=== PATIENT | male | born 1960 | race Caucasian/White ===

== ENCOUNTER → 2019-06-14 14:39 | Outpatient (CLI) | payer MEDICARE ==
[2019-06-14 15:39] LABS: CALC OSMOLALITY 281 mosm/kg (275-300); CALCIUM 8.5 mg/dL (8.5-10.1); CARBON DIOXIDE 28.6 mmol/L (21.0-32.0); CHLORIDE - SERUM 106 mmol/L (98-107); CREATININE - SERUM 0.7 mg/dL (0.6-1.3); POTASSIUM - SERUM 4.6 mmol/L (3.5-5.1); SODIUM 141 mmol/L (136-145); UREA NITROGEN 20 mg/dL (7-18); VANCOMYCIN - TROUGH 19.5 ug/mL (10.0-20.0); eGFR NON AFRICAN AMERICAN > 90 mL/min (90-120)
[2019-06-14 15:48] LABS: GLUCOSE 69 mg/dL (74-106)
== END | disposition home or self-care (01) ==
LOC: D.LABREF 14:39
DX: T81.49XA Infection following a procedure, other surgical site, initial encounter (principal)

== ENCOUNTER → 2019-06-21 14:58 | Outpatient (CLI) | payer MEDICARE ==
[2019-06-21 16:45] LABS: CALC OSMOLALITY 286 mosm/kg (275-300); CALCIUM 8.1 mg/dL (8.5-10.1); CARBON DIOXIDE 26.8 mmol/L (21.0-32.0); CHLORIDE - SERUM 107 mmol/L (98-107); CREATININE - SERUM 0.9 mg/dL (0.6-1.3); GLUCOSE 98 mg/dL (74-106); POTASSIUM - SERUM 4.2 mmol/L (3.5-5.1); SODIUM 142 mmol/L (136-145); UREA NITROGEN 25 mg/dL (7-18); VANCOMYCIN - TROUGH 10.5 ug/mL (10.0-20.0); eGFR NON AFRICAN AMERICAN > 90 mL/min (90-120)
== END | disposition home or self-care (01) ==
LOC: D.LABREF 14:58
PROVIDERS: ATTEND Internal Medicine
DX: T81.40XA Infection following a procedure, unspecified, initial encounter (principal)

== ENCOUNTER → 2019-06-28 12:06 | Outpatient (CLI) | payer MEDICARE ==
[2019-06-28 12:41] LABS: HEMATOCRIT 24.7 % (42.0-54.0); HEMOGLOBIN 7.7 g/dL (13.5-17.5); MCH 27.3 pg (26.0-34.0); MCHC 31.2 g/dL (31.0-37.0); MCV 87.6 fL (80.0-100.0); MEAN PLATELET VOLUME 8.5 fL (7.4-10.4); PLATELET COUNT 483 10x3/uL (130-400); RBC 2.82 10x6/uL (4.20-6.10); RDW 17.6 % (11.5-14.5); WBC 22.3 10x3/uL (4.8-10.8)
[2019-06-28 12:46] LABS: CALC OSMOLALITY 280 mosm/kg (275-300); CALCIUM 8.5 mg/dL (8.5-10.1); CARBON DIOXIDE 30.7 mmol/L (21.0-32.0); CHLORIDE - SERUM 103 mmol/L (98-107); CREATININE - SERUM 0.7 mg/dL (0.6-1.3); GLUCOSE 90 mg/dL (74-106); POTASSIUM - SERUM 4.7 mmol/L (3.5-5.1); SODIUM 140 mmol/L (136-145); UREA NITROGEN 18 mg/dL (7-18); VANCOMYCIN - TROUGH 8.8 ug/mL (10.0-20.0); eGFR NON AFRICAN AMERICAN > 90 mL/min (90-120)
[2019-06-28 13:53] LABS: ANISOCYTOSIS OCC; EOSINOPHILS 3 % (0-7); HYPOCHROMASIA 1+; LYMPHOCYTES 10 % (15-50); MONOCYTES 7 % (2-11); NEUTROPHILS 79 % (40-80); PLATELET ESTIMATE INCREASED; ROULEAUX OCC
== END | disposition home or self-care (01) ==
LOC: D.LABREF 12:06
PROVIDERS: ATTEND Internal Medicine
DX: M86.9 Osteomyelitis, unspecified (principal)

== ENCOUNTER → 2019-06-30 16:28 | Outpatient (CLI) | payer MEDICARE ==
[2019-06-30 16:34] LABS: BASOPHILS 0.2 % (0-2); EOSINOPHILS 3.9 % (0-7); HEMATOCRIT 29.6 % (42.0-54.0); HEMOGLOBIN 9.1 g/dL (13.5-17.5); IMMATURE GRANULOCYTES 0.2 % (0-5); LYMPHOCYTES 5.2 % (15-50); MCH 26.5 pg (26.0-34.0); MCHC 30.7 g/dL (31.0-37.0); MEAN PLATELET VOLUME 8.4 fL (7.4-10.4); MONOCYTES 4.8 % (2-11); NEUTROPHILS 85.7 % (40-80); RBC 3.44 10x6/uL (4.20-6.10); RDW 17.7 % (11.5-14.5); WBC 17.7 10x3/uL (4.8-10.8)
[2019-06-30 16:35] LABS: PLATELET COUNT 386 10x3/uL (130-400)
== END | disposition home or self-care (01) ==
LOC: D.LABREF 16:28
PROVIDERS: ATTEND Internal Medicine
DX: R79.9 Abnormal finding of blood chemistry, unspecified (principal); M46.28 Osteomyelitis of vertebra, sacral and sacrococcygeal region

== ENCOUNTER 2019-07-16 11:53 | Outpatient (CLI) | payer MEDICARE ==
[~2019-07-16] VITALS: Ht 175.3 cm; Wt 50.0 kg
[2019-07-16 12:55] VITALS: BP 111/72; Ht 175.3 cm; Wt 50.0 kg
== END 2019-07-16 14:43 | disposition home or self-care (01) ==
LOC: D.RAD 11:53 → D.OPS 12:15 → D.RAD 14:43
PROVIDERS: ATTEND Internal Medicine Geriatric Medicine
DX: Z79.2 Long term (current) use of antibiotics (principal); T82.898A Other specified complication of vascular prosthetic devices, implants and grafts, initial encounter